=== PATIENT | female | born 1995 | race African-American/Black ===

== ENCOUNTER 2019-02-12 21:42 | Emergency (ER) | payer OTHER ==
[~2019-02-12] VITALS: Ht 160 cm; Wt 56.7 kg
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
[2019-02-12] MEDS ORDERED: HYDROcodone/Acetamin 5/325 tab ORAL ONE (22:00)
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
[2019-02-12 22:11] VITALS: BP 132/78
--- NOTE | 2019-02-12 22:36 | NUR ---
ED Nurse Note: patient went down for CT
[2019-02-12] MEDS ORDERED: LORazepam 1mg tab ORAL ONE (23:00)
--- NOTE | 2019-02-12 23:00 | NUR ---
ED Nurse Note: patient is back from CT
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
[2019-02-12] MEDS ORDERED: HYDROCODON-ACE1 EA15 ORAL (23:43)
[2019-02-12] MEDS ORDERED: IBUPROFEN600 MG ORAL (23:43)
[2019-02-12 23:45] VITALS: BP 132/78
--- NOTE | 2019-02-12 23:45 | NUR ---
ED Nurse Note: Pt cleared by health care Provider for discharge. DC instructions/prescription was given and explained to pt and verbalized understanding of teachings. All medical deviecs such as ID band removed. Pt is AAO x4, ambulatory and left with all personal belongings.
== END 2019-02-12 23:45 | disposition home or self-care (01) ==
LOC: EDBD 21:42 → EMR 21:57
DX: S09.90XA Unspecified injury of head, initial encounter (principal); S00.03XA Contusion of scalp, initial encounter; S00.511A Abrasion of lip, initial encounter; S20.211A Contusion of right front wall of thorax, initial encounter; Y04.8XXA Assault by other bodily force, initial encounter; M54.2 Cervicalgia
CPT/HCPCS: 70450; 71250; 99284